=== PATIENT | male | born 1955 | race African-American/Black ===

== ENCOUNTER → 2016-07-17 | Outpatient (CLI) | payer BC ==
[2016-07-17 11:30] LABS: CH 29.9; CHCM 31.6; HCT 42.9 % (39.0-53.0); HDW 2.59; HGB 13.7 gm/dL (13.0-17.5); Large Platelets Flag Slight; MCH 30.3 pg (25.0-35.0); MCHC 31.9 g/dL (31.0-37.0); Mean Platelet Volume 10.1; RBC 4.51 m/uL (4.30-5.90); RDW 13.2 % (11.5-15.5); WBC 3.5 k/uL (3.8-10.6)
[2016-07-17 11:43] LABS: Bilirubin, Delta 0.2 mg/dL (0.0-0.2); Total Bilirubin 0.7 mg/dL (0.2-1.3); Total Protein 7.8 g/dL (6.3-8.2)
[2016-07-17 11:44] LABS: Add Differential Manual Differential
[2016-07-17 11:47] LABS: Large Platelets Present; Manual Review Performed; Nucleated Red Blood Cells 0 /100 WBC (0-0); RBC Morphology Normal; Total Cells Counted 100
[2016-07-18 16:53] LABS: Hepatits C Virus RNA, Quant <12 IU/mL (<12); LOG HCV IU/mL <1.08 (<1.08)
== END ==
LOC: LABWHC1 10:54
PROVIDERS: ATTEND Physician Assistant
DX: B18.2 Chronic viral hepatitis C (principal)
CPT/HCPCS: 36415; 80076; 82105; 85025; 87522

== ENCOUNTER → 2018-02-05 | Outpatient (CLI) | payer BC ==
[2018-02-05 09:46] LABS: ALT 24 U/L (21-72); AST 23 U/L (17-59); Albumin 4.3 g/dL (3.5-5.0); Alkaline Phosphatase 50 U/L (38-126); Anion Gap 6 mmol/L; Blood Urea Nitrogen 16 mg/dL (9-20); Calcium 9.7 mg/dL (8.4-10.2); Carbon Dioxide 27 mmol/L (22-30); Chloride 111 mmol/L (98-107); Cholesterol 159 mg/dL (<200); Glucose 79 mg/dL (74-99); HDL Cholesterol 50 mg/dL (40-60); LDL Cholesterol,Calculated 100 mg/dL (0-99); Potassium 4.5 mmol/L (3.5-5.1); Sodium 144 mmol/L (137-145); Total Bilirubin 1.2 mg/dL (0.2-1.3); Total Protein 7.9 g/dL (6.3-8.2); Triglycerides 45 mg/dL (<150)
[2018-02-05 09:58] LABS: T4, Free (Free Thyroxine) 0.93 ng/dL (0.78-2.19)
[2018-02-05 09:59] LABS: Basophils % (A) 1 %; Eosinophils # (A) 0.1 k/uL (0-0.7); Eosinophils % (A) 1 %; HGB 13.5 gm/dL (13.0-17.5); Hypochromasia Slight; Lymphocytes # (A) 1.9 k/uL (1.0-4.8); Lymphocytes % (A) 46 %; MCH 28.9 pg (25.0-35.0); MCHC 30.8 g/dL (31.0-37.0); MCV 93.8 fL (80.0-100.0); Mean Platelet Volume 9.1; Monocytes # (A) 0.2 k/uL (0-1.0); Monocytes % (A) 6 %; Neutrophils # (A) 1.8 k/uL (1.3-7.7); Neutrophils % (A) 44 %; Platelet Count 114 k/uL (150-450); RBC 4.69 m/uL (4.30-5.90); RDW 13.4 % (11.5-15.5); WBC 4.1 k/uL (3.8-10.6)
== END | disposition home or self-care (01) ==
LOC: LABWHC1 08:53
PROVIDERS: ATTEND Family Medicine
DX: E78.5 Hyperlipidemia, unspecified (principal); E55.9 Vitamin D deficiency, unspecified; R53.81 Other malaise; Z13.220 Encounter for screening for lipoid disorders
CPT/HCPCS: 36415; 80053; 80061; 82306; 84439; 84443; 85025

== ENCOUNTER → 2019-03-19 | Outpatient (CLI) | payer BC ==
--- NOTE | 2019-03-19 15:48 | CT ---
EXAMINATION TYPE: CT hip RT wo con DATE OF EXAM: 03/19/2019 COMPARISON: None HISTORY: Right hip pain CT DLP: 433 mGycm Automated exposure control for dose reduction was used. Enhanced CT of the right hip was performed. B one and soft tissue window settings are submitted. FINDINGS: Postoperative changes noted involving the right acetabulum. I do not see evidence for acute fracture. No evidence for loose body. Right proximal femur is intact. Mild degenerative joint space narrowing is noted. No soft tissue masses. IMPRESSION: POSTOPERATIVE CHANGES ABOUT THE RIGHT ACETABULUM WITHOUT EVIDENCE FOR ACUTE FRACTURE OR A DISPLACED F RACTURE COMPONENT. THE MILD DEGENERATIVE NARROWING RIGHT HIP JOINT SPACE.
== END | disposition home or self-care (01) ==
LOC: RADCTMAIN 15:20
PROVIDERS: ATTEND Orthopaedic Surgery
DX: M25.551 Pain in right hip (principal); Z98.1 Arthrodesis status; E78.5 Hyperlipidemia, unspecified; I10 Essential (primary) hypertension

== ENCOUNTER 2019-05-25 08:17 | Emergency (ER) | payer BC, OTHER ==
[2019-05-25 08:23] VITALS: TEMP 98.5
--- NOTE | 2019-05-25 09:35 | XR ---
EXAMINATION TYPE: XR lumbosacral spine min 4V DATE OF EXAM: 05/25/2019 CLINICAL HISTORY: Low back pain and strain. TECHNIQUE: Frontal, lateral, and oblique images of the lumbar spine are obtained. COMPARISON: 03/04/2012 FINDINGS: There are 5 lumbar type vertebral bodies identified. There is a mild levoscoliosis of the lumbar spine. The lumbar spine shows satisfactory alignment without evidence of acute fracture or dis location. Vertebral body heights and disk space heights are within normal limits. Minimal degenerativ e disease is seen at L3-S1 with very small osteophytes and facet arthropathy. The oblique images marcello ear within normal limits. Postsurgical change of the right hip is partially visualized. IMPRESSION: No acute fracture or malalignment is seen in the lumbar spine.
--- NOTE | 2019-05-25 09:40 | ED ---
Back Pain HPI - General Chief Complaint: Back Pain/Injury Stated Complaint: back injury-[facility] Time Seen by Provider: 05/25/19 08:37 Source: patient, RN notes reviewed Limitations: no limitations - History of Present Illness Initial Comments: 64-year-old male presents emergency from chief complaint of low back pain. Patient denies any injury on Saturday in which she reported to work was seen at [facility] and was holding a lumbar strain. Patient states he seemed to worsen last couple days states he was concerned. He has been on light duty. Patient does admit on Saturday he was moving carts to the right and felt a little twinge in his back, left side. Patient states his location of his pain. Patient also states he had an injury 2 months ago at work in which she fell but states he did not have any glass in affects from this. Patient denies any bowel bladder incontinence or retention or saddle anesthesias no lower extremity pain or paresthesias. - Related Data Previous Rx's Medication Instructions Recorded Cyclobenzaprine [Flexeril] 10 mg PO TID PRN #15 tab 05/25/19 Ibuprofen [Motrin] 600 mg PO Q8HR PRN #30 tab 05/25/19 Allergies Allergy/AdvReac Type Severity Reaction Status Date / Time No Known Allergies Allergy Verified 05/25/19 08:23 Review of Systems ROS Statement: Those systems with pertinent positive or pertinent negative responses have been documented in the HPI. ROS Other: All systems not noted in ROS Statement are negative. Past Medical History Past Medical History: Hyperlipidemia, Hypertension History of Any Multi-Drug Resistant Organisms: MRSA MDRO Source:: 2013 Additional Past Surgical History / Comment(s): r hip acetabular fracture Past Psychological History: No Psychological Hx Reported Smoking Status: Former smoker Past Alcohol Use History: None Reported Past Drug Use History: None Reported General Exam Limitations: no limitations General appearance: alert, in no apparent distress Head exam: Present: atraumatic, normocephalic, normal inspection Eye exam: Present: normal appearance, PERRL, EOMI. Absent: scleral icterus, conjunctival injection, periorbital swelling ENT exam: Present: normal exam, mucous membranes moist Respiratory exam: Present: normal lung sounds bilaterally. Absent: respiratory distress, wheezes, rales, rhonchi, stridor Cardiovascular Exam: Present: regular rate, normal rhythm, normal heart sounds. Absent: systolic murmur, diastolic murmur, rubs, gallop, clicks GI/Abdominal exam: Present: soft, normal bowel sounds. Absent: distended, tenderness, guarding, rebound, rigid Extremities exam: Present: other (Lower extremity strength equal bilaterally neurovascular intact to call equal warmth) Back exam: Present: normal inspection, full ROM (Mild discomfort left lumbar), tenderness, paraspinal tenderness. Absent: vertebral tenderness Neurological exam: Present: reflexes normal. Absent: motor sensory deficit Course Vital Signs 05/25/19 08:19 Temperature 98.5 F Pulse Rate 70 Respiratory 18 Rate Blood Pressure 171/96 O2 Sat by Pulse 98 Oximetry Medical Decision Making - Medical Decision Making X-rays are negative for acute changes, minimal degenerative changes. Patient will be discharged with ibuprofen, muscle relaxers return parameters were discussed. Disposition Clinical Impression: Strain of lumbar region Disposition: HOME SELF-CARE Condition: Stable Instructions (If sedation given, give patient instructions): Acute Low Back Pain (ED) Additional Instructions: Please return to the Emergency Department if symptoms worsen or any other concerns. Prescriptions: Cyclobenzaprine [Flexeril] 10 mg PO TID PRN #15 tab PRN Reason: Muscle Spasm Ibuprofen [Motrin] 600 mg PO Q8HR PRN #30 tab PRN Reason: Pain Is patient prescribed a controlled substance at d/c from ED?: No Referrals: Jeffrey Manzo MD [Primary Care Provider] - 1-2 days Time of Disposition: 09:40
[2019-05-25 10:40] VITALS: RESP 20
[2019-05-25 10:41] VITALS: BP 172/94; PULSE 771
== END 2019-05-25 10:41 | disposition home or self-care (01) ==
LOC: EC 08:17
DX: S39.012A Strain of muscle, fascia and tendon of lower back, initial encounter (principal); M47.816 Spondylosis without myelopathy or radiculopathy, lumbar region; Z87.891 Personal history of nicotine dependence; Z86.14 Personal history of Methicillin resistant Staphylococcus aureus infection; X50.1XXA Overexertion from prolonged static or awkward postures, initial encounter; Y93.89 Activity, other specified; Y92.69 Other specified industrial and construction area as the place of occurrence of the external cause; Y99.0 Civilian activity done for income or pay
CPT/HCPCS: 72110; 99283

== ENCOUNTER → 2019-09-17 | Outpatient (CLI) | payer BC ==
[2019-09-17 10:19] LABS: Basophils # (A) 0.1 k/uL (0-0.2); Basophils % (A) 2 %; Eosinophils # (A) 0.2 k/uL (0-0.7); Eosinophils % (A) 5 %; HGB 13.9 gm/dL (13.0-17.5); Hypochromasia Slight; Lymphocytes % (A) 48 %; MCH 28.9 pg (25.0-35.0); MCHC 30.9 g/dL (31.0-37.0); MCV 93.6 fL (80.0-100.0); Mean Platelet Volume 9.5; Monocytes # (A) 0.2 k/uL (0-1.0); Monocytes % (A) 5 %; Neutrophils # (A) 1.6 k/uL (1.3-7.7); Neutrophils % (A) 38 %; Platelet Count 158 k/uL (150-450); RDW 13.5 % (11.5-15.5); WBC 4.1 k/uL (3.8-10.6)
[2019-09-17 10:30] LABS: Calcium 9.5 mg/dL (8.4-10.2); Potassium 4.6 mmol/L (3.5-5.1)
== END | disposition home or self-care (01) ==
LOC: LABPAT 09:23
PROVIDERS: ATTEND Urology
DX: Z01.818 Encounter for other preprocedural examination (principal); C61 Malignant neoplasm of prostate
CPT/HCPCS: 36415; 80048; 85025

== ENCOUNTER → 2019-09-22 | Outpatient (CLI) | payer BC | END | disposition home or self-care (01) | LOC: LABWHC1 12:21 | PROVIDERS: ATTEND Urology | DX: U07.1 COVID-19 (principal) | CPT/HCPCS: 87635 ==

== ENCOUNTER 2019-09-24 09:47 | Day surgery (SDC) | payer BC ==
--- NOTE | 2019-09-22 11:33 | P.HPIHPCON ---
History of Present Illness H&P Date: 09/24/19 Chief Complaint: Prostate Cancer Mr is 64 hx of bianka 7 (4+3) prostate cancer. He elected to proceed with radiation therapy. He elected to proceed with SpaceOR placement. I discussed with risk of bleeding and infection. Also discussed risk of rectal and prostate injury. I discussed with him the risk from anesthesia which includes but not limited to heart attack, stroke, blood clots and even loss of life. He understood all the risk and agreed to proceed Consent for Procedure: I have explained the operation/procedure to the patient, including the risks, benefits, side effects, alternative therapies (including not receiving the proposed treatment or service), the likelihood of the patient achieving his/her goals, and potential recuperation problems for the procedure/sedation/analgesia, as well as any blood products, if indicated. I also explained to the patient the risks, benefits and side effects of the alternatives, as well as the risks related to not receiving the proposed procedure, care, treatment, or services. Past Medical History Past Medical History: Hyperlipidemia, Hypertension History of Any Multi-Drug Resistant Organisms: MRSA MDRO Source:: 2013 Additional Past Surgical History / Comment(s): r hip acetabular fracture Past Psychological History: No Psychological Hx Reported Smoking Status: Former smoker Past Alcohol Use History: None Reported Past Drug Use History: None Reported Medications and Allergies Home Medications Medication Instructions Recorded Confirmed Type Cyclobenzaprine [Flexeril] 10 mg PO TID PRN #15 tab 05/25/19 Rx Ibuprofen [Motrin] 600 mg PO Q8HR PRN #30 tab 05/25/19 Rx Allergies Allergy/AdvReac Type Severity Reaction Status Date / Time No Known Allergies Allergy Verified 05/25/19 08:23 Surgical - Exam - General well developed, well nourished, no distress - Eyes PERRL, normal ocular movement - Respiratory normal expansion, normal respiratory effort - Abdomen Abdomen: soft, non tender Assessment and Plan Assessment: 64 yo male with hx of bianka 7 (4+3) prostate Cancer -OR for SpaceOR placement
[2019-09-22 17:04] VITALS: BMI 29.9
[~2019-09-24 09:47] MED LIST: LACTATED RINGERS 1,000 ML IV SCH
[2019-09-24 10:01] VITALS: TEMP 97.8
[2019-09-24] MEDS ORDERED: LIDOCAINE 1% (10MG/ML) FOR IV START INTRADERMA ONE (10:01)
[2019-09-24] MEDS ORDERED: LACTATED RINGERS 1,000 ML IV ONE (10:01)
[2019-09-24] MEDS ORDERED: DEXAMETHASONE SOD PHOS (MDV) 100 MG/10 ML VIAL IVP ONE (10:12)
[2019-09-24] MEDS ORDERED: ONDANSETRON 4 MG/2 ML VIAL IVP ONE (10:12)
[2019-09-24] MEDS ORDERED: LIDOCAINE 2% INJ 20 MG/ML SQ ONE (10:22)
[2019-09-24 10:29] LABS: Glucose,Whole Blood 121 mg/dL (75-99)
[2019-09-24] MEDS ORDERED: fentaNYL (PF) 50 MCG/ML 2 ML AMP ONE (10:31)
[2019-09-24] MEDS ORDERED: PROPOFOL 10 MG/ML 20 ML VIAL IV ONE (10:31)
[2019-09-24] MEDS ORDERED: MIDAZOLAM 2 MG/2 ML VIAL ONE (10:31)
[2019-09-24 11:08] VITALS: RESP 16
[2019-09-24 11:23] VITALS: BP 145/71; PULSE 79
--- NOTE | 2019-09-24 11:25 | P.OP ---
Date of Procedure: 09/24/19 Preoperative Diagnosis: Adenocarcinoma of the Prostate Postoperative Diagnosis: Same Procedure(s) Performed: SpaceOAR Hydrogel Implant Anesthesia: MAC Surgeon: Shravan Dillard Estimated Blood Loss (ml): 5 IV fluids (ml): 600 Pathology: none sent Condition: stable Disposition: PACU Indications for Procedure: Mr. Polk is a 64 year old male diagnosed with Brandan 7 (4+3) prostate cancer. He elected to proceed with radiation therapy, and he desires SpaceOAR implant to reduce rectal toxicity. Operative Findings: Excellent separation of the rectum and prostate achieved. Description of Procedure: The patient was taken to the operating room and placed in the dorsolithotomy position, with his legs supported in Chapin stirrups. The external genitalia was prepped and draped sterilely. The Bruel and Kjaer transrectal ultrasound probe was placed intrarectally. The prostate was imaged. The probe was then placed within the stabilizing stand. A spinal needle was advanced under ultrasonic guidance to the level of the urogenital diaphragm, and lidocaine was used to infiltrate the tissues as the needle was withdrawn. Next, the SpaceOAR needle was passed through the midline of the perineum, 1-2 cm anterior to the anal opening. The needle was slowly advanced under ultrasonic guidance until the needle tip was located within the fat plane between the prostate and rectum, at the level of the mid prostate gland. The needle was confirmed to be midline on the axial imaging. A small amount of normal saline was injected for hydrodissection. Next, the SpaceOAR components were mixed and loaded into the Y connector per protocol. The Y connector was then connected to the needle, and the components were injected slowly over a course of approximately 12 seconds. A total of 10 ml was injected. Significant distance was created between the prostate and rectum, as desired. It should be noted that at no point was there any concern of rectal perforation. The needle was withdrawn, as well as the transrectal ultrasound probe, and the procedure was terminated. The patient tolerated the procedure well and was taken to the recovery room in stable condition.
== END 2019-09-24 11:44 | disposition home or self-care (01) ==
LOC: OR 09:47
PROVIDERS: ATTEND Urology
DX: C61 Malignant neoplasm of prostate (principal); I10 Essential (primary) hypertension; E78.5 Hyperlipidemia, unspecified; Z79.890 Hormone replacement therapy; Z79.899 Other long term (current) drug therapy; Z86.14 Personal history of Methicillin resistant Staphylococcus aureus infection; Z87.891 Personal history of nicotine dependence

== ENCOUNTER → 2019-10-14 | Outpatient (CLI) | payer BC | END | disposition home or self-care (01) | LOC: LABWHC1 13:21 | PROVIDERS: ATTEND Radiology Radiation Oncology | DX: C61 Malignant neoplasm of prostate (principal); Z87.891 Personal history of nicotine dependence | CPT/HCPCS: 36415; 84153 ==

== ENCOUNTER → 2019-12-11 | Outpatient (CLI) | payer BC ==
[2019-12-11 09:59] LABS: Appearance,Urine Clear (Clear); Bilirubin,Urine Negative (Negative); Blood,Urine Negative (Negative); Color,Urine Yellow; Glucose,Urine (UA) Negative (Negative); Ketones,Urine Negative (Negative); Leukocyte Esterase,Urine Negative (Negative); Nitrite,Urine Negative (Negative); PH, Urine 5.5 (5.0-8.0); Protein,Urine Negative (Negative); Specific Gravity,Urine 1.024 (1.001-1.035)
== END ==
LOC: LABWHC1 08:10
PROVIDERS: ATTEND Radiology Radiation Oncology
DX: C61 Malignant neoplasm of prostate (principal); Z79.818 Long term (current) use of other agents affecting estrogen receptors and estrogen levels; Z87.891 Personal history of nicotine dependence
CPT/HCPCS: 36415; 81003; 84153; 87086

== ENCOUNTER → 2020-04-19 | Outpatient (CLI) | payer BC | END | disposition home or self-care (01) | LOC: LABWHC1 15:39 | PROVIDERS: ATTEND Radiology Radiation Oncology | DX: C61 Malignant neoplasm of prostate (principal); Z79.818 Long term (current) use of other agents affecting estrogen receptors and estrogen levels; Z87.891 Personal history of nicotine dependence | CPT/HCPCS: 36415; 84153 ==

== ENCOUNTER → 2020-09-05 | Outpatient (CLI) | payer BC | END | disposition home or self-care (01) | LOC: LABWHC1 16:13 | PROVIDERS: ATTEND Radiology Radiation Oncology | DX: C61 Malignant neoplasm of prostate (principal); Z92.3 Personal history of irradiation; Z87.891 Personal history of nicotine dependence; Z79.818 Long term (current) use of other agents affecting estrogen receptors and estrogen levels | CPT/HCPCS: 36415; 84153 ==

== ENCOUNTER → 2021-01-02 | Outpatient (CLI) | payer MEDICARE | END | disposition home or self-care (01) | LOC: LABWHC1 09:26 | PROVIDERS: ATTEND Radiology Radiation Oncology | DX: C61 Malignant neoplasm of prostate (principal); Z92.3 Personal history of irradiation; Z79.818 Long term (current) use of other agents affecting estrogen receptors and estrogen levels; Z87.891 Personal history of nicotine dependence | CPT/HCPCS: 36415; 84153 ==

== ENCOUNTER 2021-06-24 16:33 | Emergency (ER) | payer MEDICARE ==
[2021-06-24 16:41] VITALS: BP 156/81; PULSE 60; RESP 16; TEMP 98
[2021-06-24] MEDS ORDERED: ORPHENADRINE 30 MG/ML 2 ML VIAL IM STA (16:53)
--- NOTE | 2021-06-24 16:58 | ED ---
General Adult HPI - General Chief complaint: Head Injury Stated complaint: Fall-head injury Time Seen by Provider: 06/24/21 16:48 Source: patient, RN notes reviewed, old records reviewed Mode of arrival: ambulatory Limitations: no limitations - History of Present Illness Initial comments: 66-year-old male, alert and oriented and in no acute distress presents ambulatory to the emergency room after slipping on ice yesterday falling backward hitting his head on the concrete. He is not sure if he lost consciousness. He did feel dizzy at the time. He continues to have intermittent dizziness, denies any nausea vomiting or diarrhea. He did drive to the hospital today. He denies pain he just feels dizzy and a little off. -: days(s) (2) Location: head Radiation: non-radiation Severity scale (1-10): 0 Improves with: rest Worsens with: movement Associated Symptoms: other (dizziness) Treatments Prior to Arrival: none - Related Data Home Medications Medication Instructions Recorded Confirmed Atorvastatin [Lipitor] 10 mg PO HS 09/22/19 06/24/21 Levothyroxine Sodium 25 mcg PO DAILY 09/22/19 06/24/21 Verapamil HCl [Verapamil ER] 240 mg PO BID 09/22/19 06/24/21 lisinopriL [Zestril] 40 mg PO HS 09/22/19 06/24/21 Cholecalciferol [Vitamin D3 (125 125 mcg PO DAILY 06/24/21 06/24/21 Mcg = 5000 Iu)] Tamsulosin HCl [Flomax] 0.4 mg PO BID 06/24/21 06/24/21 Allergies Allergy/AdvReac Type Severity Reaction Status Date / Time No Known Allergies Allergy Verified 06/24/21 18:02 Review of Systems ROS Statement: Those systems with pertinent positive or pertinent negative responses have been documented in the HPI. ROS Other: All systems not noted in ROS Statement are negative. Past Medical History Past Medical History: Hyperlipidemia, Hypertension, Prostate Disorder, Thyroid Disorder History of Any Multi-Drug Resistant Organisms: MRSA MDRO Source:: 2013 Additional Past Surgical History / Comment(s): r hip acetabular fracture Past Psychological History: No Psychological Hx Reported Smoking Status: Former smoker Past Alcohol Use History: None Reported Past Drug Use History: None Reported General Exam Limitations: no limitations General appearance: alert, in no apparent distress Head exam: Present: atraumatic, normocephalic, normal inspection Expanded Head exam: Absent: laceration, abrasion, hematoma, cristobal's sign, tenderness of temporal artery Eye exam: Present: normal appearance, EOMI. Absent: scleral icterus, conjunctival injection, nystagmus, periorbital swelling, periorbital tenderness Neck exam: Present: normal inspection, full ROM. Absent: tenderness, meningismus, lymphadenopathy, thyromegaly Respiratory exam: Present: normal lung sounds bilaterally. Absent: respiratory distress, wheezes, rales, rhonchi, stridor Cardiovascular Exam: Present: regular rate, normal rhythm. Absent: JVD Extremities exam: Present: normal inspection, full ROM, normal capillary refill. Absent: tenderness, pedal edema, joint swelling, calf tenderness Back exam: Present: normal inspection, full ROM. Absent: tenderness, CVA tenderness (R), CVA tenderness (L), rash noted Neurological exam: Present: alert, oriented X3, CN II-XII intact, normal gait Expanded Patient oriented to: Present: person, place, time Speech: Present: fluid speech Cranial nerves: EOM's Intact: Normal Cerebellar function: Finger to Nose: Normal, Heel to [place]: Normal Motor strength exam: RUE: 5, LUE: 5, RLE: 5, LLE: 5 Eye Response: (4) open spontaneously Motor Response: (6) obeys commands Verbal Response: (5) oriented Wilson Total: 15 Psychiatric exam: Present: normal affect, normal mood. Absent: anxious Skin exam: Present: warm, dry, intact, normal color. Absent: rash, cyanosis, diaphoretic Course Vital Signs 06/24/21 16:37 Temperature 98 F Pulse Rate 60 Respiratory 16 Rate Blood Pressure 156/81 O2 Sat by Pulse 100 Oximetry Medical Decision Making - Medical Decision Making 66-year-old male presents ambulatory with complaints of slipping on ice yesterday falling backward hitting his head on the concrete. Unsure if there was loss of consciousness. Patient has no focal neurological deficits , ambulates with a steady gait. CT of the brain and C-spine show no acute intracranial process. No evidence of cervical spine fracture. There is mild multilevel degenerative disc disease in the cervical spine. Patient was offered Norflex and declined. States he is taking Motrin at home for pain. This is likely mild concussion. Vital signs are stable. He will be given a referral to neurology for follow-up. Directed to return to the emergency room with any new or concerning symptoms. Case discussed with Dr. Morgan Disposition Clinical Impression: Concussion Disposition: HOME SELF-CARE Condition: Good Instructions (If sedation given, give patient instructions): Concussion (ED) Additional Instructions: Follow-up with neurology as referred. Return to the emergency room if any new or worsening symptoms including persistent nausea or vomiting, confusion, slurred speech, decreased coordination or seizures Is patient prescribed a controlled substance at d/c from ED?: No Referrals: Jeffrey Manzo MD [Primary Care Provider] - 1-2 days Elle Zheng MD [Medical Doctor] - 1-2 days Time of Disposition: 18:41
--- NOTE | 2021-06-24 18:28 | CT ---
EXAMINATION TYPE: CT brain cspine wo con CT DLP: 1475.9 mGycm, Automated exposure control for dose reduction was used. DATE OF EXAM: 06/24/2021 6:16 PM COMPARISON: None.. CLINICAL INDICATION:Male, 66 years old with history of fall possible LOC; headache and dizziness foll owing fall TECHNIQUE: Brain: Multiple axial CT images of the brain were obtained without IV contrast. Cspine: Axial CT images from the skull base to the inferior aspect of T2 we obtained without intraven ous contrast. Coronal and sagittal reformatted images were also reviewed. FINDINGS: Brain: Extra-axial spaces: No abnormal extra-axial fluid collections. Ventricular system: Within normal limits Cerebral parenchyma: No acute intraparenchymal hemorrhage or mass effect. The castillo-white junction is well differentiated. Cerebellum: Unremarkable. Mass effect: No evidence of midline shift. Intracranial vasculature: Atherosclerotic calcifications of the intracranial vessels. Soft tissues: Normal. Calvarium/osseous structures: No depressed skull fracture. Paranasal sinuses and mastoid air cells: Scattered mucosal thickening of the paranasal sinuses. Visualized orbits: Orbital contents are intact. Cervical spine: Fracture: None. Osseous structures: Multilevel degenerative disc disease changes with endplate spurring and disc oste ophyte complex's. Vertebral alignment: Within normal limits. Spinal canal/Neural Foramina: No evidence of significant spinal canal narrowing. No evidence of signi ficant neural foramina narrowing. Neck soft tissues: Prevertebral soft tissues are within normal limits. Other: The airway is patent. The lung apices are clear. IMPRESSION: 1. No acute intracranial process. 2. No evidence of cervical spine fracture. 3. Mild multilevel degenerative disc disease.
== END 2021-06-24 18:52 | disposition home or self-care (01) ==
LOC: EC 16:33
DX: S06.0X9A Concussion with loss of consciousness of unspecified duration, initial encounter (principal); I10 Essential (primary) hypertension; E78.5 Hyperlipidemia, unspecified; Z87.891 Personal history of nicotine dependence; Z79.890 Hormone replacement therapy; Z79.899 Other long term (current) drug therapy; W01.0XXA Fall on same level from slipping, tripping and stumbling without subsequent striking against object, initial encounter
CPT/HCPCS: 70450; 72125; 99284

== ENCOUNTER 2021-09-27 07:04 | Emergency (ER) | payer MEDICARE ==
[2021-09-27 07:13] VITALS: TEMP 97.7
[2021-09-27] MEDS ORDERED: SODIUM CHLORIDE 0.9% 1,000 ML IV STA (07:28)
[2021-09-27] MEDS ORDERED: MECLIZINE 12.5 MG TAB PO STA (07:30)
--- NOTE | 2021-09-27 07:33 | ED ---
Dizziness HPI - General Chief Complaint: Dizziness Stated Complaint: Lightheaded Time Seen by Provider: 09/27/21 07:15 Source: patient, family, RN notes reviewed Mode of arrival: wheelchair - History of Present Illness Initial Comments: 66-year-old male with a history of prostate cancer, chronic hepatitis C, history of anemia who states he was doing his usual workout this morning with 20 pound dumbbells is basically became lightheaded some dizziness with certain positional changes. Possibly palpitations no chest pain also gets some shortness of breath. Asked again he states he has had some fluttering in his chest as an episode of chills this morning. No recent flu symptoms no fevers sweats nausea vomiting no cough or phlegm production no dysuria. He does state that he did have a fall in June of this year and did sustain a concussion is concerned this may have something do with the symptoms this morning also. Patient seizure of his bicycle approximately 6-7 miles yesterday also did a lot of yard work and was doing some heavy lifting. He does state he has some low back discomfort but this is, by the patient, attributed to the activity yesterday. Additionally the patient did complain some left-sided headache he states does intermittently get these. MD Complaint: dizziness, lightheadedness, other - Related Data Home Medications Medication Instructions Recorded Confirmed Atorvastatin [Lipitor] 10 mg PO HS 09/22/19 09/27/21 Levothyroxine Sodium 25 mcg PO DAILY 09/22/19 09/27/21 Verapamil HCl [Verapamil ER] 240 mg PO BID 09/22/19 09/27/21 lisinopriL [Zestril] 40 mg PO HS 09/22/19 09/27/21 Tamsulosin HCl [Flomax] 0.4 mg PO BID 06/24/21 09/27/21 Famotidine [Pepcid AC] 10 mg PO DAILY 09/27/21 09/27/21 Previous Rx's Medication Instructions Recorded Meclizine [Antivert] 25 mg PO TID #20 tab 09/27/21 Allergies Allergy/AdvReac Type Severity Reaction Status Date / Time No Known Allergies Allergy Verified 09/27/21 10:03 Review of Systems ROS Statement: Those systems with pertinent positive or pertinent negative responses have been documented in the HPI. ROS Other: All systems not noted in ROS Statement are negative. Past Medical History Past Medical History: Hyperlipidemia, Hypertension, Prostate Disorder, Thyroid Disorder History of Any Multi-Drug Resistant Organisms: MRSA MDRO Source:: 2014 Additional Past Surgical History / Comment(s): r hip acetabular fracture Past Psychological History: No Psychological Hx Reported Smoking Status: Former smoker Past Alcohol Use History: None Reported Past Drug Use History: None Reported General Exam - General Exam Comments Initial Comments: This is a well-developed well-nourished awake alert oriented 3 male General appearance: alert, in no apparent distress Head exam: Present: atraumatic, normocephalic, normal inspection Eye exam: Present: normal appearance, PERRL, EOMI. Absent: scleral icterus, conjunctival injection, periorbital swelling ENT exam: Present: mucous membranes dry Neck exam: Present: normal inspection, full ROM, other. Absent: tenderness, meningismus, lymphadenopathy Respiratory exam: Present: normal lung sounds bilaterally. Absent: respiratory distress, wheezes, rales, rhonchi, stridor Cardiovascular Exam: Present: regular rate, normal rhythm, normal heart sounds. Absent: systolic murmur, diastolic murmur, rubs, gallop, clicks GI/Abdominal exam: Present: soft, normal bowel sounds. Absent: distended, tenderness, guarding, rebound, rigid Extremities exam: Present: normal inspection, full ROM, normal capillary refill. Absent: tenderness, pedal edema, joint swelling, calf tenderness Back exam: Present: normal inspection Neurological exam: Present: alert, oriented X3, CN II-XII intact Psychiatric exam: Present: normal affect, normal mood Skin exam: Present: warm, dry, intact, normal color. Absent: rash Course Vital Signs 09/27/21 09/27/21 07:09 10:05 Temperature 97.7 F Pulse Rate 63 56 L Respiratory 18 16 Rate Blood Pressure 127/64 126/82 O2 Sat by Pulse 100 95 Oximetry - Reevaluation(s) Reevaluation #1: 09/27/21 07:34 The patient does state that he felt same symptoms when he try to lay back on the emergency department stretcher. EKG Findings - EKG Results: EKG: interpreted by ERMD (Sinus bradycardia rate 53 TN interval 226 QRS 148 daily since QTC 453/436 left exodeviation right bundle-branch block pattern pulses criteria for LVH) Medical Decision Making - Medical Decision Making Reevaluation patient finds he is asymptomatic this time he is feeling much improved I did have a discussion with him and his family regarding the findings presentation is consistent with benign positional vertigo as well as dehydration - Lab Data Result diagrams: 09/27/21 07:47 09/27/21 07:47 Lab Results 09/27/21 09/27/21 09/27/21 Range/Units 07:47 07:47 07:47 WBC 3.4 L (3.8-10.6) k/uL RBC 4.41 (4.30-5.90) m/uL Hgb 12.9 L (13.0-17.5) gm/dL Hct 41.5 (39.0-53.0) % MCV 94.1 (80.0-100.0) fL MCH 29.2 (25.0-35.0) pg MCHC 31.0 (31.0-37.0) g/dL RDW 13.1 (11.5-15.5) % Plt Count 109 L (150-450) k/uL MPV 10.2 Neutrophils % (Manual) 54 % Band Neuts % (Manual) 1 % Lymphocytes % (Manual) 34 % Monocytes % (Manual) 9 % Eosinophils % (Manual) 2 % Basophils % (Manual) 1 % Metamyelocytes % 1 % Neutrophils # (Manual) 1.80 (1.3-7.7) k/uL Lymphocytes # (Manual) 1.16 (1.0-4.8) k/uL Monocytes # (Manual) 0.31 (0-1.0) k/uL Eosinophils # (Manual) 0.07 (0-0.7) k/uL Basophils # (Manual) 0.03 (0-0.2) k/uL Metamyelocytes # (Man) 0.03 H (0) k/uL Nucleated RBCs 0 (0-0) /100 WBC Manual Slide Review Performed RBC Morphology Normal Sodium 140 (137-145) mmol/L Potassium 4.2 (3.5-5.1) mmol/L Chloride 109 H (98-107) mmol/L Carbon Dioxide 23 (22-30) mmol/L Anion Gap 8 mmol/L BUN 16 (9-20) mg/dL Creatinine 1.04 (0.66-1.25) mg/dL Est GFR (CKD-EPI)AfAm 86 (>60 ml/min/1.73 sqM) Est GFR (CKD-EPI)NonAf 74 (>60 ml/min/1.73 sqM) Glucose 118 H (74-99) mg/dL POC Glucose (mg/dL) (75-99) mg/dL POC Glu Folding Machine Feeder ID Calcium 8.3 L (8.4-10.2) mg/dL Magnesium 1.7 (1.6-2.3) mg/dL Total Bilirubin 1.0 (0.2-1.3) mg/dL AST 25 (17-59) U/L ALT 15 (4-49) U/L Alkaline Phosphatase 58 (38-126) U/L Creatine Kinase 287 H (55-170) U/L Troponin I <0.012 (0.000-0.034) ng/mL Total Protein 6.9 (6.3-8.2) g/dL Albumin 3.7 (3.5-5.0) g/dL Urine Color Urine Appearance (Clear) Urine pH (5.0-8.0) Ur Specific [place] (1.001-1.035) Urine Protein (Negative) Urine Glucose (UA) (Negative) Urine Ketones (Negative) Urine Blood (Negative) Urine Nitrite (Negative) Urine Bilirubin (Negative) Urine Urobilinogen (<2.0) mg/dL Ur Leukocyte Esterase (Negative) Coronavirus (PCR) (Not Detectd) Influenza Type A RNA (Not Detectd) Influenza Type B (PCR) (Not Detectd) RSV (PCR) (Negative) 09/27/21 09/27/21 09/27/21 Range/Units 07:47 08:18 08:47 WBC (3.8-10.6) k/uL RBC (4.30-5.90) m/uL Hgb (13.0-17.5) gm/dL Hct (39.0-53.0) % MCV (80.0-100.0) fL MCH (25.0-35.0) pg MCHC (31.0-37.0) g/dL RDW (11.5-15.5) % Plt Count (150-450) k/uL MPV Neutrophils % (Manual) % Band Neuts % (Manual) % Lymphocytes % (Manual) % Monocytes % (Manual) % Eosinophils % (Manual) % Basophils % (Manual) % Metamyelocytes % % Neutrophils # (Manual) (1.3-7.7) k/uL Lymphocytes # (Manual) (1.0-4.8) k/uL Monocytes # (Manual) (0-1.0) k/uL Eosinophils # (Manual) (0-0.7) k/uL Basophils # (Manual) (0-0.2) k/uL Metamyelocytes # (Man) (0) k/uL Nucleated RBCs (0-0) /100 WBC Manual Slide Review RBC Morphology Sodium (137-145) mmol/L Potassium (3.5-5.1) mmol/L Chloride (98-107) mmol/L Carbon Dioxide (22-30) mmol/L Anion Gap mmol/L BUN (9-20) mg/dL Creatinine (0.66-1.25) mg/dL Est GFR (CKD-EPI)AfAm (>60 ml/min/1.73 sqM) Est GFR (CKD-EPI)NonAf (>60 ml/min/1.73 sqM) Glucose (74-99) mg/dL POC Glucose (mg/dL) 96 (75-99) mg/dL POC Glu Folding Machine Feeder ID Diana Escalona Calcium (8.4-10.2) mg/dL Magnesium (1.6-2.3) mg/dL Total Bilirubin (0.2-1.3) mg/dL AST (17-59) U/L ALT (4-49) U/L Alkaline Phosphatase (38-126) U/L Creatine Kinase (55-170) U/L Troponin I (0.000-0.034) ng/mL Total Protein (6.3-8.2) g/dL Albumin (3.5-5.0) g/dL Urine Color Urine Appearance (Clear) Urine pH (5.0-8.0) Ur Specific [place] (1.001-1.035) Urine Protein (Negative) Urine Glucose (UA) (Negative) Urine Ketones (Negative) Urine Blood (Negative) Urine Nitrite (Negative) Urine Bilirubin (Negative) Urine Urobilinogen (<2.0) mg/dL Ur Leukocyte Esterase (Negative) Coronavirus (PCR) Not Detected (Not Detectd) Influenza Type A RNA Not Detected (Not Detectd) Influenza Type B (PCR) Not Detected (Not Detectd) RSV (PCR) Negative (Negative) 09/27/21 Range/Units 09:13 WBC (3.8-10.6) k/uL RBC (4.30-5.90) m/uL Hgb (13.0-17.5) gm/dL Hct (39.0-53.0) % MCV (80.0-100.0) fL MCH (25.0-35.0) pg MCHC (31.0-37.0) g/dL RDW (11.5-15.5) % Plt Count (150-450) k/uL MPV Neutrophils % (Manual) % Band Neuts % (Manual) % Lymphocytes % (Manual) % Monocytes % (Manual) % Eosinophils % (Manual) % Basophils % (Manual) % Metamyelocytes % % Neutrophils # (Manual) (1.3-7.7) k/uL Lymphocytes # (Manual) (1.0-4.8) k/uL Monocytes # (Manual) (0-1.0) k/uL Eosinophils # (Manual) (0-0.7) k/uL Basophils # (Manual) (0-0.2) k/uL Metamyelocytes # (Man) (0) k/uL Nucleated RBCs (0-0) /100 WBC Manual Slide Review RBC Morphology Sodium (137-145) mmol/L Potassium (3.5-5.1) mmol/L Chloride (98-107) mmol/L Carbon Dioxide (22-30) mmol/L Anion Gap mmol/L BUN (9-20) mg/dL Creatinine (0.66-1.25) mg/dL Est GFR (CKD-EPI)AfAm (>60 ml/min/1.73 sqM) Est GFR (CKD-EPI)NonAf (>60 ml/min/1.73 sqM) Glucose (74-99) mg/dL POC Glucose (mg/dL) (75-99) mg/dL POC Glu Folding Machine Feeder ID Calcium (8.4-10.2) mg/dL Magnesium (1.6-2.3) mg/dL Total Bilirubin (0.2-1.3) mg/dL AST (17-59) U/L ALT (4-49) U/L Alkaline Phosphatase (38-126) U/L Creatine Kinase (55-170) U/L Troponin I (0.000-0.034) ng/mL Total Protein (6.3-8.2) g/dL Albumin (3.5-5.0) g/dL Urine Color Yellow Urine Appearance Clear (Clear) Urine pH 6.0 (5.0-8.0) Ur Specific [place] 1.011 (1.001-1.035) Urine Protein Negative (Negative) Urine Glucose (UA) Negative (Negative) Urine Ketones Negative (Negative) Urine Blood Negative (Negative) Urine Nitrite Negative (Negative) Urine Bilirubin Negative (Negative) Urine Urobilinogen <2.0 (<2.0) mg/dL Ur Leukocyte Esterase Negative (Negative) Coronavirus (PCR) (Not Detectd) Influenza Type A RNA (Not Detectd) Influenza Type B (PCR) (Not Detectd) RSV (PCR) (Negative) - Radiology Data Radiology results: report reviewed (Imaging reviewed no acute processes), image reviewed Disposition Clinical Impression: Dehydration, Vertigo Disposition: HOME SELF-CARE Condition: Good Instructions (If sedation given, give patient instructions): Benign Paroxysmal Positional Vertigo (ED), Dehydration (ED) Prescriptions: Meclizine [Antivert] 25 mg PO TID #20 tab Is patient prescribed a controlled substance at d/c from ED?: No Referrals: Jeffrey Manzo MD [Primary Care Provider] - 1-2 days Decision Date: 09/27/21 Decision Time: 10:30
[2021-09-27] MEDS ORDERED: MECLIZINE 25 MG TAB PO STA (07:49)
--- NOTE | 2021-09-27 08:10 | XR ---
EXAMINATION TYPE: XR chest 2V DATE OF EXAM: 09/27/2021 COMPARISON: NONE HISTORY: Shortness of breath TECHNIQUE: Frontal and lateral views of the chest are obtained. FINDINGS: Scattered senescent parenchymal changes noted. No evidence for infiltrate. No evidence for atelectasis. Heart size is stable. Mediastinal structures are stable and grossly unremarkable. No evidence for hilar prominence. Degenerative changes dorsal spine. IMPRESSION: 1. No evidence for acute pulmonary disease.
[2021-09-27 08:11] LABS: HCT 41.5 % (39.0-53.0); HGB 12.9 gm/dL (13.0-17.5); MCH 29.2 pg (25.0-35.0); MCV 94.1 fL (80.0-100.0); Mean Platelet Volume 10.2; Platelet Count 109 k/uL (150-450); RBC 4.41 m/uL (4.30-5.90); RDW 13.1 % (11.5-15.5); WBC 3.4 k/uL (3.8-10.6)
[2021-09-27 08:25] LABS: Albumin 3.7 g/dL (3.5-5.0); Calcium 8.3 mg/dL (8.4-10.2); Magnesium 1.7 mg/dL (1.6-2.3); Potassium 4.2 mmol/L (3.5-5.1); Total Protein 6.9 g/dL (6.3-8.2)
[2021-09-27 08:50] LABS: Glucose,Whole Blood 96 mg/dL (75-99)
[2021-09-27 09:21] LABS: Band Neutrophils % 1 %; Basophils # (M) 0.03 k/uL (0-0.2); Eosinophils # (M) 0.07 k/uL (0-0.7); Lymphocytes # (M) 1.16 k/uL (1.0-4.8); Metamyelocytes # (M) 0.03 k/uL (0); Metamyelocytes % 1 %; Monocytes # (M) 0.31 k/uL (0-1.0); Neutrophils % (M) 54 %; Nucleated Red Blood Cells 0 /100 WBC (0-0); Total Cells Counted 200
[2021-09-27 09:22] LABS: RBC Morphology Normal
[2021-09-27 09:44] LABS: Appearance,Urine Clear (Clear); Bilirubin,Urine Negative (Negative); Blood,Urine Negative (Negative); Color,Urine Yellow; Glucose,Urine (UA) Negative (Negative); Ketones,Urine Negative (Negative); Leukocyte Esterase,Urine Negative (Negative); Nitrite,Urine Negative (Negative); Protein,Urine Negative (Negative); Specific Gravity,Urine 1.011 (1.001-1.035); Urobilinogen,Urine <2.0 mg/dL (<2.0)
--- NOTE | 2021-09-27 10:00 | CT ---
EXAMINATION TYPE: CT brain wo con DATE OF EXAM: 09/27/2021 COMPARISON: CT dated 06/24/2021 HISTORY: Dizziness, Lightheaded CT DLP: 1092.4 mGycm Automated exposure control for dose reduction was used. TECHNIQUE: CT scan of the brain is performed without IV contrast administration. FINDINGS: Questionable subtle bilateral cerebral white matter hypodensities, possibly ischemic. No acute intrac ranial hemorrhage. No gross acute cortical infarct. No midline shift, herniation or ventriculomegaly. Unremarkable castillo-white matter differentiation, basal cisterns, sella and CP angles. No gross space-o ccupying lesion, vasogenic edema or mass effect. Unremarkable orbits. Clear visualized paranasal sinuses and mastoid air cells. Unremarkable calvarial bones. IMPRESSION: No acute intracranial abnormality or gross space-occupying lesion by this nonenhanced CT scan. Possib le mild chronic ischemic changes as described above.
[2021-09-27 10:06] VITALS: BP 126/82; PULSE 56; RESP 16
== END 2021-09-27 10:40 | disposition home or self-care (01) ==
LOC: EC 07:04
DX: E86.0 Dehydration (principal); I10 Essential (primary) hypertension; E78.5 Hyperlipidemia, unspecified; E07.9 Disorder of thyroid, unspecified; Z87.891 Personal history of nicotine dependence; Z79.899 Other long term (current) drug therapy; Z79.890 Hormone replacement therapy; Z20.822 Contact with and (suspected) exposure to COVID-19
CPT/HCPCS: 36415; 70450; 71046; 80053; 81003; 82550; 83735; 84484; 85025; 87502; 87634; 87635; 93005; 96360; 99284

== ENCOUNTER → 2022-01-03 | Outpatient (CLI) | payer MEDICARE | END | disposition home or self-care (01) | LOC: LABWHC1 11:52 | PROVIDERS: ATTEND Radiology Radiation Oncology | DX: C61 Malignant neoplasm of prostate (principal); Z92.3 Personal history of irradiation; Z79.818 Long term (current) use of other agents affecting estrogen receptors and estrogen levels; Z87.891 Personal history of nicotine dependence | CPT/HCPCS: 36415; 84153 ==

== ENCOUNTER → 2023-04-10 | Outpatient (CLI) | payer MEDICARE | END | disposition home or self-care (01) | LOC: LABWHC1 08:31 | PROVIDERS: ATTEND Radiology Radiation Oncology | DX: Z08 Encounter for follow-up examination after completed treatment for malignant neoplasm (principal); C61 Malignant neoplasm of prostate; Z92.3 Personal history of irradiation; Z79.818 Long term (current) use of other agents affecting estrogen receptors and estrogen levels; Z87.891 Personal history of nicotine dependence | CPT/HCPCS: 36415; 84153 ==

== ENCOUNTER → 2024-03-12 | Outpatient (CLI) | payer MEDICARE | END | disposition home or self-care (01) | LOC: LABWHC1 08:08 | PROVIDERS: ATTEND Radiology Radiation Oncology | CPT/HCPCS: 36415; 84153 ==

== ENCOUNTER → 2024-09-29 | Outpatient (CLI) | payer MEDICARE ==
--- NOTE | 2024-09-29 14:29 | MR ---
EXAMINATION TYPE: MR hip LT wo con DATE OF EXAM: 09/29/2024 12:19 PM COMPARISON: 03/19/2019. 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 IV Contrast: mL FINDINGS: Joint spaces and alignment: Satisfactory Joint/bursal fluid: Normal Articular cartilage: Scattered areas of thinning. Acetabular labrum: Intact given nonobstructive in technique. Muscles/Tendons: Intact The tendons of the gluteal, hamstring, iliopsoas, and adductors are normal in within normal limits without evidence for edema and are intact. Abductor tendon insertions: Intact, increased PD signal in the gluteus medius insertion. Intrapelvic structures: Normal Neurovascular structures: Normal Osseous structures: No evidence for necrosis of the femoral head. Fixation hardware involving the rig ht pelvis limits evaluation around the right hip. Mild degeneration changes with osteophyte formation and joint space narrowing. The femoral head demonstrates normal morphology and signal characteristic s. There is no evidence of fracture or acute process. The sacroiliac joints and pubic symphysis are noted to be unremarkable. Soft tissues: Normal Other: The prostate, seminal vesicles, and urinary bladder are unremarkable. No lymphadenopathy is v isualized. IMPRESSION: 1. No evidence for a hip fracture, AVN, or bone marrow edema. 2. 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 No displaced labral tear given nonarthrogram techniq ue. 3. Post fixation changes to the right pelvis. 4. Mild left gluteus medius tendinosis. [facility], , 09/29/2024 2:27 PM
== END | disposition home or self-care (01) ==
LOC: RADMRIMAIN 11:33
PROVIDERS: ATTEND Orthopaedic Surgery
DX: M16.12 Unilateral primary osteoarthritis, left hip (principal); M87.052 Idiopathic aseptic necrosis of left femur; M67.854 Other specified disorders of tendon, left hip; Z98.890 Other specified postprocedural states